=== PATIENT | female | born 1980 | race Caucasian/White ===

== ENCOUNTER 2016-10-20 00:37 | Emergency (ER) | payer BC ==
[2016-10-20 00:41] VITALS: BP 146/97
[2016-10-20 08:53] LABS: BASOPHIL % 0.4 % (0-2); PLATELET COUNT 265 x10^3mcL (130-400); RED CELL DISTRIBUTION WIDTH 13.4 % (11.5-14.5)
[2016-10-20 08:53] LABS: ALBUMIN 3.6 g/dL (3.4-5.0); ALKALINE PHOSPHATASE 79 U/L (46-116); ALT/SGPT 24 U/L (14-59); AST/SGOT 12 U/L (15-37); BILIRUBIN TOTAL 0.18 mg/dL (0.20-1.00); C REACTIVE PROTEIN 0.3 mg/dL (<=0.9); CALCIUM 8.6 mg/dL (8.5-10.1); CARBON DIOXIDE 25.8 mmol/L (21-32); CHLORIDE SERUM 106 mmol/L (98-107); CREATININE SERUM 0.8 mg/dL (0.6-1.0); GFR1 > 60 mL/min; GLUCOSE SERUM 100 mg/dL (74-106); SODIUM SERUM 140 mmol/L (136-145); TOTAL PROTEIN, SERUM 7.2 g/dL (6.4-8.2)
[2016-10-20 08:54] LABS: FREE T4 1.23 ng/dL (0.76-1.46); FREE THYROXINE INDEX 3.5 ug/dL (1.4-4.5); T4(THYROXINE) 9.9 ug/dL (4.7-13.3)
[2016-10-20 10:08] LABS: T3 TOTAL 1.31 ng/mL
[2016-10-20 16:16] LABS: APPEARANCE CSF CLEAR; COLOR CSF COLORLESS; WBC CSF 2.2 /cumm (0-5)
[2016-10-20 16:17] LABS: RBC CSF 13.2 /cumm (0)
[2016-10-20 16:19] LABS: APPEARANCE CSF CLEAR; COLOR CSF COLORLESS; RBC CSF 18 /cumm (0); WBC CSF 0 /cumm (0-5)
[2016-10-20 17:54] LABS: CK-MB 1.3 ng/mL (0-3.6)
== END 2016-10-20 09:02 | disposition home or self-care (01) ==
LOC: ED 00:37
PROVIDERS: Specialist
DX: R51 Headache (principal); G89.29 Other chronic pain; K21.9 Gastro-esophageal reflux disease without esophagitis; E66.9 Obesity, unspecified; J45.909 Unspecified asthma, uncomplicated
CPT/HCPCS: 36415; 62272; 83880; 84439; J1885; J2060; J2405; J3010; Q0092

== ENCOUNTER 2017-08-27 04:08 | Emergency (ER) | payer BC ==
[~2017-08-27] VITALS: Ht 170.2 cm; Wt 101.7 kg
[2017-08-27 04:29] VITALS: Ht 170.2 cm; Wt 101.7 kg
[2017-08-27 07:44] VITALS: BP 135/91
== END 2017-08-27 07:44 | disposition home or self-care (01) ==
LOC: ED 04:08
DX: M54.5 Low back pain (principal); M54.16 Radiculopathy, lumbar region; J45.909 Unspecified asthma, uncomplicated; Z88.5 Allergy status to narcotic agent
CPT/HCPCS: J1100; J1885